=== PATIENT | male | born 1990 | race Caucasian/White ===

== ENCOUNTER 2020-09-03 11:17 | Emergency (ER) | payer SELFPAY ==
[~2020-09-03] VITALS: Ht 185.4 cm; Wt 77.1 kg
--- NOTE | 2020-09-03 11:30 | NUR ---
ANTONIO YANEZ "Bizarre Behavior last night GF called 911 Was hard to wake up this this am found a crack pipe in his sock." The patient is alert and oriented x4. In room air and denies SOB. Respiration regular and unlabored. Denies SI/HI. Attached to the monitor. Warm blanket provdied for comfort. Will contnue to monitor the patient.
[2020-09-03 11:49] LABS: BASOPHILS # (AUTO) 0.1 /CMM (0.0-0.2); BASOPHILS % (AUTO) 0.5 % (0.0-2.0); EOSINOPHILS % (AUTO) 0.9 % (0.0-6.0); HEMATOCRIT 43 % (39-51); HEMOGLOBIN 14.1 g/dL (13.5-17.5); LYMPHOCYTES # (AUTO) 3.3 /CMM (0.8-4.8); LYMPHOCYTES % (AUTO) 29.6 % (20.0-44.0); MEAN CORPUSCULAR HGB CONC 33 g/dl (31.0-36.0); MEAN CORPUSCULAR VOLUME 93 fL (80-96); MONOCYTES # (AUTO) 0.8 /CMM (0.1-1.30); MONOCYTES % (AUTO) 6.9 % (2.0-12.0); NEUTROPHILS # (AUTO) 6.9 /CMM (1.8-8.9); NEUTROPHILS % (AUTO) 62.1 % (43.0-81.0); PLATELET COUNT (AUTO) 229 /CMM (150-450); RED BLOOD CELL COUNT(AUTO) 4.59 MIL/uL (4.5-6.0); WHITE BLOOD COUNT (AUTO) 11.2 K/uL (4.3-11.0)
[2020-09-03 11:56] LABS: CALCIUM, SERUM 9.2 mg/dL (8.5-10.1); CARBON DIOXIDE 31 mmol/L (21-32); CHLORIDE 97 mmol/L (98-107); GLUCOSE 97 mg/dL (74-106); POTASSIUM 3.9 mmol/L (3.5-5.1); SODIUM SERUM 135 mmol/L (136-145); UREA NITROGEN, BLOOD 17 mg/dL (7-18)
[2020-09-03 12:03] LABS: ALANINE AMINOTRANSFERASE 22 U/L (12-78); ALCOHOL, BLOOD < 3 mg/dL (0-0); ALKALINE PHOSPHATASE 44 U/L (46-116); ASPARTATE AMINOTRANSFERASE 19 U/L (15-37); BILIRUBIN,DIRECT 0.2 mg/dL (0.0-0.2); BILIRUBIN,TOTAL 0.8 mg/dL (0.2-1.0)
[2020-09-03 12:04] LABS: ACETAMINOPHEN < 2 ug/ml (10-30)
[2020-09-03 13:13] VITALS: BP 142/80
--- NOTE | 2020-09-03 13:13 | NUR ---
Patient does not wish to proceed with medical care recommended by Dr. Smiley. Patient given information related to possible complications, up to and including , which could occur as a result of leaving the hospital at this time. Patient verbalizes understanding of risks involved due to leaving against medical advice. Patient has signed AMA form.
== END 2020-09-03 13:13 | disposition left against medical advice (07) ==
LOC: ER 11:19
DX: F29 Unspecified psychosis not due to a substance or known physiological condition (principal); Z98.890 Other specified postprocedural states
CPT/HCPCS: 36415; 80048-TC; 80076-TC; 85025-TC; G0480